=== PATIENT | male | born 2000 ===

== ENCOUNTER 2023-08-20 17:09 | Emergency (ER) | payer OTHER ==
[~2023-08-20] VITALS: Ht 177.8 cm; Wt 79.5 kg
[2023-08-20 17:24] VITALS: BP 115/73; PULSE 90; RESP 18; TEMP 98.2
[2023-08-20] MEDS: ACETAMINOPHEN 500 MG TABLET PO ONE (20:16)
== END 2023-08-20 20:35 | disposition home or self-care (01) ==
LOC: EMS 17:23
DX: S93.401A Sprain of unspecified ligament of right ankle, initial encounter (principal); X58.XXXA Exposure to other specified factors, initial encounter; Y93.66 Activity, soccer; Y92.89 Other specified places as the place of occurrence of the external cause; Y99.8 Other external cause status
CPT/HCPCS: 99283